=== PATIENT | female | born 1980 | race African-American/Black ===

== ENCOUNTER 2022-03-22 10:44 | Inpatient (IN) | payer OTHER ==
[~2022-03-22] VITALS: Ht 175.3 cm; Wt 57.6 kg
[2022-03-22] VITALS (15 sets, daily range): BP systolic 133–180; BP diastolic 74–100
[2022-03-22 11:32] LABS: BASOPHILS % 0.5 % (0.0-1.0); EOSINOPHILS # (AUTO) 0.2 (0.0-0.4); EOSINOPHILS % 2.5 % (0.0-6.0); LYMPHOCYTES # (AUTO) 0.6 (1.0-3.2); LYMPHOCYTES % 9.4 % (18.0-39.1); MEAN CORPUSCULAR HGB CONC 31.2 g/dL (31-35); MEAN CORPUSCULAR VOLUME 96.2 fL (81-99); MONOCYTES # (AUTO) 0.4 (0.2-0.8); MONOCYTES % 6.3 % (4.4-11.3); NEUTROPHILS # (AUTO) 5.2 (2.1-6.9); NEUTROPHILS % 80.5 % (38.7-80.0); PLATELET COUNT 289 x10e3/uL (140-360); RED CELL DISTRIBUTION WIDTH 14.5 % (11.7-14.4)
[2022-03-22] MEDS ORDERED: ONDANSETRON HCL INJ 2MG/ML 2ML 2 MG/ML VIAL IV STA (11:35)
[2022-03-22] MEDS ORDERED: SODIUM CHLORIDE 0.9% 500ML 500 ML IV ONE (11:45)
[2022-03-22 11:53] LABS: HEMOGLOBIN 6.3 g/dL (12.0-16.0)
[2022-03-22 11:54] LABS: HEMATOCRIT 20.2 % (34.2-44.1)
[2022-03-22 11:56] LABS: INR 1.12; PROTHROMBIN TIME 15.4 seconds (11.9-14.5)
[2022-03-22 11:57] LABS: PARTIAL THROMBOPLASTIN TIME 42.1 seconds (23.8-35.5)
[2022-03-22] MEDS ORDERED: SODIUM CHLORIDE 0.9% 250ML 250 ML ONE (12:27)
[2022-03-22 12:47] LABS: ALANINE AMINOTRANSFERASE 8 IU/L (0-55); ALBUMIN 3.8 g/dL (3.5-5.0); ALKALINE PHOSPHATASE 74 IU/L (40-150); BLOOD UREA NITROGEN 64 mg/dL (7-26); BUN/CREATININE RATIO 7 (6-25); CALCIUM 8.6 mg/dL (8.4-10.2); CARBON DIOXIDE 17 mmol/L (22-29); CHLORIDE 106 mmol/L (98-107); CREATININE, SERUM 8.82 mg/dL (0.57-1.11); GLUCOSE 100 mg/dL (74-118); SODIUM 137 mmol/L (136-145)
[2022-03-22] MEDS ORDERED: DEXTROSE 50% SYRINGE 50 ML IV STA (13:08)
[2022-03-22] MEDS ORDERED: SODIUM BICARBONATE 8.4% INJ 50 ML SYR IV STA (13:08)
[2022-03-22] MEDS ORDERED: INSULIN REGULAR, HUMAN 100 UNIT/1 ML IV ONE (13:15)
[2022-03-22] MEDS ORDERED: CALCIUM GLUC 1 G/50 ML NACL 50 ML IV ONE (13:15)
[2022-03-22] MEDS ORDERED: LIDOCAINE HCL 2% LOCAL INJ 5 ML SDV VIAL INJ ONE (14:22)
[2022-03-22 14:44] LABS: ALBUMIN 3.5 g/dL (3.5-5.0); ALBUMIN/GLOBULIN RATIO 0.7 (0.8-2.0); ANION GAP 21.1 mmol/L (8-16); CALCIUM 9.1 mg/dL (8.4-10.2); CREATININE, SERUM 8.91 mg/dL (0.57-1.11)
[2022-03-22] MEDS ORDERED: Vancomycin IV 1 GM in SODIUM CHLORIDE 0.9% 250ML 250 ML IV ONE ×2 (14:45→18:45)
[2022-03-22 14:52] LABS: POTASSIUM 6.1 mmol/L (3.5-5.1)
[2022-03-22] MEDS ORDERED: MANNITOL 25% 12.5GM/50 ML VIAL IV PRN (15:45)
[2022-03-22] MEDS ORDERED: SODIUM CHLORIDE 0.9% 1000ML 2,000 ML IV PRN (15:45)
[2022-03-22] MEDS ORDERED: HEPARIN SOD (PORCINE) 1000 UNIT/ML SDV IV PRN (15:45)
[2022-03-22] MEDS ORDERED: SODIUM CHLORIDE 0.9% 250ML 250 ML IV ONE (16:20)
[2022-03-22] MEDS: HYDROCODONE/APAP 5MG-325MG TAB PO PRN ×2 (17:27→22:39)
[2022-03-22] MEDS: Morphine 2mg Syringe 2 MG/ML SYR IV PRN (21:42)
[2022-03-22] MEDS: SODIUM BICARBONATE 8.4% 150 ML in DEXTROSE 5% 1,000 ML IV SCH (22:02)
[2022-03-22] MEDS: LORAZEPAM 0.5 MG TAB PO PRN (23:29)
[2022-03-23] VITALS (33 sets, daily range): BP systolic 119–181; BP diastolic 61–106
[2022-03-23] MEDS: Morphine 2mg Syringe 2 MG/ML SYR IV PRN (01:37)
[2022-03-23] MEDS: HYDROCODONE/APAP 5MG-325MG TAB PO PRN ×4 (04:17→20:00)
[2022-03-23] MEDS: HYDROMORPHONE 1MG/1ML INJ IV PRN ×2 (05:43→17:21)
[2022-03-23 05:47] LABS: BASOPHILS % 0.5 % (0.0-1.0); EOSINOPHILS # (AUTO) 0.2 (0.0-0.4); EOSINOPHILS % 2.8 % (0.0-6.0); LYMPHOCYTES # (AUTO) 0.9 (1.0-3.2); MEAN CORPUSCULAR HEMOGLOBIN 30.8 pg (28-32); MEAN CORPUSCULAR HGB CONC 33.5 g/dL (31-35); MEAN CORPUSCULAR VOLUME 91.9 fL (81-99); MONOCYTES # (AUTO) 0.5 (0.2-0.8); MONOCYTES % 8.5 % (4.4-11.3); NEUTROPHILS # (AUTO) 4.5 (2.1-6.9); NEUTROPHILS % 73.7 % (38.7-80.0); PLATELET COUNT 228 x10e3/uL (140-360); RED BLOOD COUNT 2.21 x10e6/uL (3.6-5.1); RED CELL DISTRIBUTION WIDTH 13.9 % (11.7-14.4)
[2022-03-23 05:58] LABS: HEMATOCRIT 20.3 % (34.2-44.1); HEMOGLOBIN 6.8 g/dL (12.0-16.0)
[2022-03-23 06:14] LABS: ALBUMIN 2.6 g/dL (3.5-5.0); ALBUMIN/GLOBULIN RATIO 0.7 (0.8-2.0); ANION GAP 15.7 mmol/L (8-16); CALCIUM 7.6 mg/dL (8.4-10.2); CREATININE, SERUM 6.66 mg/dL (0.57-1.11); POTASSIUM 4.7 mmol/L (3.5-5.1)
[2022-03-23] MEDS ORDERED: SODIUM CHLORIDE 0.9% 250ML 250 ML IV ONE (06:30)
[2022-03-23] MEDS: ONDANSETRON HCL INJ 2MG/ML 2ML 2 MG/ML VIAL IV PRN ×3 (06:52→20:57)
[2022-03-23] MEDS ORDERED: ONDANSETRON HCL INJ 2MG/ML 2ML 2 MG/ML VIAL ONE (07:04)
[2022-03-23] MEDS: SODIUM BICARBONATE 8.4% 150 ML in DEXTROSE 5% 1,000 ML IV SCH (08:13)
[2022-03-23] MEDS ORDERED: EPOETIN ALFA-EPBX 10,000 UNIT/ML VIAL SC ONE (09:00)
[2022-03-23] MEDS: DEXTROSE 5%/0.45% SOD CHL 1,000 ML IV SCH (10:34)
[2022-03-23] MEDS: LORAZEPAM 0.5 MG TAB PO PRN (16:12)
[2022-03-24] VITALS (20 sets, daily range): BP systolic 122–169; BP diastolic 83–110
[2022-03-24] MEDS: HYDROMORPHONE 1MG/1ML INJ IV PRN ×5 (00:03→23:11)
[2022-03-24] MEDS ORDERED: LISINOPRIL10 MG PO (00:17)
[2022-03-24] MEDS ORDERED: FEROSUL325 MG PO (00:17)
[2022-03-24] MEDS: HYDROCODONE/APAP 5MG-325MG TAB PO PRN ×5 (02:02→21:08)
[2022-03-24] MEDS: DEXTROSE 5%/0.45% SOD CHL 1,000 ML IV SCH ×2 (03:18→16:57)
[2022-03-24 05:12] LABS: BASOPHILS % 0.3 % (0.0-1.0); EOSINOPHILS # (AUTO) 0.2 (0.0-0.4); EOSINOPHILS % 3.4 % (0.0-6.0); HEMATOCRIT 25.6 % (34.2-44.1); LYMPHOCYTES # (AUTO) 1.1 (1.0-3.2); MEAN CORPUSCULAR HEMOGLOBIN 30.4 pg (28-32); MEAN CORPUSCULAR HGB CONC 31.3 g/dL (31-35); MEAN CORPUSCULAR VOLUME 97.3 fL (81-99); MONOCYTES # (AUTO) 0.5 (0.2-0.8); MONOCYTES % 7.3 % (4.4-11.3); NEUTROPHILS # (AUTO) 5.1 (2.1-6.9); NEUTROPHILS % 73.4 % (38.7-80.0); PLATELET COUNT 239 x10e3/uL (140-360); RED BLOOD COUNT 2.63 x10e6/uL (3.6-5.1)
[2022-03-24 05:29] LABS: ANION GAP 15.2 mmol/L (8-16); CREATININE, SERUM 4.83 mg/dL (0.57-1.11); POTASSIUM 4.2 mmol/L (3.5-5.1)
[2022-03-24] MEDS: DOCUSATE SODIUM 100 MG CAP PO PRN ×2 (05:45→15:08)
[2022-03-24] MEDS: ONDANSETRON HCL INJ 2MG/ML 2ML 2 MG/ML VIAL IV PRN ×2 (05:54→11:56)
[2022-03-24] MEDS: AMLODIPINE BESYLATE 5 MG TAB PO SCH (08:44)
[2022-03-24] MEDS ORDERED: HEPARIN SOD (PORCINE) 1000 UNIT/ML SDV IV PRN (14:15)
[2022-03-24] MEDS ORDERED: CEFTRIAXONE 1 GM VIAL ONE (17:07)
[2022-03-25] VITALS (7 sets, daily range): BP systolic 155–168; BP diastolic 92–105
[2022-03-25] MEDS: HYDROCODONE/APAP 5MG-325MG TAB PO PRN ×5 (01:36→21:58)
[2022-03-25] MEDS: ONDANSETRON HCL INJ 2MG/ML 2ML 2 MG/ML VIAL IV PRN ×4 (01:36→20:31)
[2022-03-25] MEDS: DEXTROSE 5%/0.45% SOD CHL 1,000 ML IV SCH ×2 (03:54→11:03)
[2022-03-25] MEDS: HYDROMORPHONE 1MG/1ML INJ IV PRN ×4 (04:30→20:32)
[2022-03-25] MEDS: AMLODIPINE BESYLATE 5 MG TAB PO SCH (08:55)
[2022-03-25] MEDS ORDERED: SODIUM FERRIC GLUCONATE COMPLX 125 MG in SODIUM CHLORIDE 0.9% 100 ML IV SCH (09:00)
[2022-03-25] MEDS ORDERED: HYDROCODON-ACE1 EA10 PO (09:00)
[2022-03-25 11:18] LABS: BASOPHILS % 0.3 % (0.0-1.0); EOSINOPHILS # (AUTO) 0.3 (0.0-0.4); EOSINOPHILS % 3.8 % (0.0-6.0); HEMATOCRIT 27.4 % (34.2-44.1); HEMOGLOBIN 8.5 g/dL (12.0-16.0); LYMPHOCYTES % 13.2 % (18.0-39.1); MEAN CORPUSCULAR HEMOGLOBIN 30.4 pg (28-32); MEAN CORPUSCULAR VOLUME 97.9 fL (81-99); MONOCYTES # (AUTO) 0.4 (0.2-0.8); MONOCYTES % 5.4 % (4.4-11.3); NEUTROPHILS # (AUTO) 5.5 (2.1-6.9); NEUTROPHILS % 76.5 % (38.7-80.0); PLATELET COUNT 234 x10e3/uL (140-360); RED CELL DISTRIBUTION WIDTH 13.3 % (11.7-14.4)
[2022-03-25 11:38] LABS: INR 1.01; PROTHROMBIN TIME 14.2 seconds (11.9-14.5)
[2022-03-25 11:39] LABS: PARTIAL THROMBOPLASTIN TIME 37.5 seconds (23.8-35.5)
[2022-03-25] MEDS ORDERED: SODIUM CHLORIDE 0.9% 250ML 250 ML ONE (18:54)
[2022-03-26] VITALS (9 sets, daily range): BP systolic 149–171; BP diastolic 92–101
[2022-03-26] MEDS: ONDANSETRON HCL INJ 2MG/ML 2ML 2 MG/ML VIAL IV PRN ×3 (00:15→15:08)
[2022-03-26] MEDS: HYDROMORPHONE 1MG/1ML INJ IV PRN ×7 (00:15→21:17)
[2022-03-26] MEDS: HYDROCODONE/APAP 5MG-325MG TAB PO PRN ×5 (01:54→20:12)
[2022-03-26 06:22] LABS: PROTHROMBIN TIME 14.1 seconds (11.9-14.5)
[2022-03-26] MEDS: AMLODIPINE BESYLATE 5 MG TAB PO SCH ×2 (09:00→15:08)
[2022-03-26] MEDS: DEXTROSE 5%/0.45% SOD CHL 1,000 ML IV SCH ×2 (09:01→16:32)
[2022-03-26 09:30] LABS: BASOPHILS % 0.3 % (0.0-1.0); EOSINOPHILS # (AUTO) 0.2 (0.0-0.4); EOSINOPHILS % 3.1 % (0.0-6.0); HEMATOCRIT 26.2 % (34.2-44.1); HEMOGLOBIN 8.2 g/dL (12.0-16.0); LYMPHOCYTES # (AUTO) 0.9 (1.0-3.2); LYMPHOCYTES % 14.2 % (18.0-39.1); MEAN CORPUSCULAR HEMOGLOBIN 30.5 pg (28-32); MEAN CORPUSCULAR HGB CONC 31.3 g/dL (31-35); MEAN CORPUSCULAR VOLUME 97.4 fL (81-99); MONOCYTES # (AUTO) 0.3 (0.2-0.8); MONOCYTES % 5.3 % (4.4-11.3); NEUTROPHILS # (AUTO) 4.6 (2.1-6.9); NEUTROPHILS % 76.3 % (38.7-80.0); PLATELET COUNT 211 x10e3/uL (140-360); RED BLOOD COUNT 2.69 x10e6/uL (3.6-5.1); RED CELL DISTRIBUTION WIDTH 13.2 % (11.7-14.4)
[2022-03-26 10:00] LABS: ALBUMIN 2.8 g/dL (3.5-5.0); ALBUMIN/GLOBULIN RATIO 0.8 (0.8-2.0); ANION GAP 15.1 mmol/L (8-16); CREATININE, SERUM 4.57 mg/dL (0.57-1.11); POTASSIUM 4.1 mmol/L (3.5-5.1)
[2022-03-26] MEDS ORDERED: LIDOCAINE HCL 1% 30ML-PF VIAL INJ ONE (10:16)
[2022-03-26 10:34] LABS: MAGNESIUM 1.6 MG/DL (1.3-2.1); PHOSPHORUS 3.8 MG/DL (2.3-4.7)
[2022-03-26] MEDS ORDERED: MIDAZOLAM HCL 2 MG/2 ML VIAL ONE (12:30)
[2022-03-26] MEDS ORDERED: FENTANYL CITRATE/PF 100MCG/2 ML INJ ONE (12:31)
[2022-03-26] MEDS ORDERED: SODIUM CHLORIDE 0.9% 250ML 250 ML ONE (12:31)
[2022-03-26] MEDS ORDERED: CEFTRIAXONE 1 GM VIAL ONE (12:33)
[2022-03-26] MEDS: CLONIDINE HCL 0.1 MG TAB PO PRN (17:25)
[2022-03-27] VITALS (7 sets, daily range): BP systolic 137–170; BP diastolic 87–100
[2022-03-27] MEDS: HYDROMORPHONE 1MG/1ML INJ IV PRN ×6 (00:33→21:42)
[2022-03-27] MEDS: HYDROCODONE/APAP 5MG-325MG TAB PO PRN ×5 (02:15→19:00)
[2022-03-27] MEDS: CLONIDINE HCL 0.1 MG TAB PO PRN (06:20)
[2022-03-27 08:31] LABS: ALBUMIN 2.5 g/dL (3.5-5.0); ALBUMIN/GLOBULIN RATIO 0.7 (0.8-2.0); ANION GAP 14.5 mmol/L (8-16); CALCIUM 8.1 mg/dL (8.4-10.2); CREATININE, SERUM 5.98 mg/dL (0.57-1.11); POTASSIUM 4.5 mmol/L (3.5-5.1)
[2022-03-27] MEDS: DEXTROSE 5%/0.45% SOD CHL 1,000 ML IV SCH (08:42)
[2022-03-27] MEDS: AMLODIPINE BESYLATE 5 MG TAB PO SCH ×2 (08:43→09:10)
[2022-03-27] MEDS: HYDROCODONE/APAP 10MG-325MG TAB PO PRN (23:13)
[2022-03-28] VITALS (8 sets, daily range): BP systolic 139–172; BP diastolic 91–102
[2022-03-28] MEDS: HYDROMORPHONE 1MG/1ML INJ IV PRN ×5 (03:04→22:15)
[2022-03-28] MEDS: HYDROCODONE/APAP 10MG-325MG TAB PO PRN ×5 (04:16→20:36)
[2022-03-28] MEDS: DEXTROSE 5%/0.45% SOD CHL 1,000 ML IV SCH (04:22)
[2022-03-28 05:27] LABS: BASOPHILS % 0.4 % (0.0-1.0); EOSINOPHILS # (AUTO) 0.3 (0.0-0.4); EOSINOPHILS % 4.2 % (0.0-6.0); HEMOGLOBIN 9.2 g/dL (12.0-16.0); LYMPHOCYTES # (AUTO) 1.1 (1.0-3.2); LYMPHOCYTES % 15.9 % (18.0-39.1); MEAN CORPUSCULAR HEMOGLOBIN 30.5 pg (28-32); MEAN CORPUSCULAR HGB CONC 31.7 g/dL (31-35); MONOCYTES # (AUTO) 0.4 (0.2-0.8); MONOCYTES % 5.8 % (4.4-11.3); NEUTROPHILS # (AUTO) 4.9 (2.1-6.9); PLATELET COUNT 237 x10e3/uL (140-360); RED BLOOD COUNT 3.02 x10e6/uL (3.6-5.1); RED CELL DISTRIBUTION WIDTH 13.8 % (11.7-14.4)
[2022-03-28 05:49] LABS: ALBUMIN/GLOBULIN RATIO 0.7 (0.8-2.0); ANION GAP 17.2 mmol/L (8-16); CALCIUM 8.8 mg/dL (8.4-10.2); CREATININE, SERUM 6.28 mg/dL (0.57-1.11); POTASSIUM 4.2 mmol/L (3.5-5.1)
[2022-03-28] MEDS: CLONIDINE HCL 0.1 MG TAB PO PRN (08:37)
[2022-03-28] MEDS: AMLODIPINE BESYLATE 5 MG TAB PO SCH (08:38)
[2022-03-28] MEDS: NIFEDIPINE CR 30 MG TAB PO SCH (20:46)
[2022-03-28] MEDS: ONDANSETRON HCL INJ 2MG/ML 2ML 2 MG/ML VIAL IV PRN (23:42)
[2022-03-29] VITALS (7 sets, daily range): BP systolic 118–164; BP diastolic 78–94
[2022-03-29] MEDS: HYDROCODONE/APAP 10MG-325MG TAB PO PRN ×4 (00:44→18:32)
[2022-03-29] MEDS: HYDROMORPHONE 1MG/1ML INJ IV PRN ×6 (02:17→22:14)
[2022-03-29] MEDS: ONDANSETRON HCL INJ 2MG/ML 2ML 2 MG/ML VIAL IV PRN ×5 (06:41→22:13)
[2022-03-29] MEDS: NIFEDIPINE CR 30 MG TAB PO SCH ×2 (13:00→22:16)
[2022-03-29] MEDS ORDERED: SODIUM CHLORIDE 0.9% 250ML 250 ML ONE ×3 (14:37→16:53)
[2022-03-29] MEDS ORDERED: MIDAZOLAM HCL 2 MG/2 ML VIAL ONE (15:17)
[2022-03-29] MEDS ORDERED: HEPARIN SOD (PORCINE) 1000 UNIT/ML SDV ONE (15:17)
[2022-03-29] MEDS ORDERED: CEFTRIAXONE 1 GM VIAL ONE (15:18)
[2022-03-29] MEDS ORDERED: FENTANYL CITRATE/PF 100MCG/2 ML INJ ONE (15:18)
[2022-03-29] MEDS ORDERED: IOPAMIDOL 300MG/ML 100 ML INFUS..BTL IV ONE (16:03)
[2022-03-29] MEDS: KETOROLAC TROMETHAMINE 30 MG/ML VIAL IV PRN (20:42)
[2022-03-30] VITALS (7 sets, daily range): BP systolic 112–132; BP diastolic 73–84
[2022-03-30] MEDS: HYDROCODONE/APAP 10MG-325MG TAB PO PRN ×3 (00:38→14:15)
[2022-03-30] MEDS: KETOROLAC TROMETHAMINE 30 MG/ML VIAL IV PRN ×3 (04:07→20:43)
[2022-03-30] MEDS: NIFEDIPINE CR 30 MG TAB PO SCH ×2 (09:00→20:43)
[2022-03-30] MEDS ORDERED: EPOETIN ALFA-EPBX 10,000 UNIT/ML VIAL SC SCH (10:00)
[2022-03-30] MEDS: ONDANSETRON HCL INJ 2MG/ML 2ML 2 MG/ML VIAL IV PRN ×3 (10:13→22:09)
[2022-03-30] MEDS: HYDROMORPHONE 1MG/1ML INJ IV PRN ×3 (10:14→22:17)
[2022-03-30 11:26] LABS: BASOPHILS % 0.3 % (0.0-1.0); EOSINOPHILS # (AUTO) 0.3 (0.0-0.4); EOSINOPHILS % 4.5 % (0.0-6.0); HEMATOCRIT 28.2 % (34.2-44.1); HEMOGLOBIN 8.3 g/dL (12.0-16.0); LYMPHOCYTES # (AUTO) 1.1 (1.0-3.2); LYMPHOCYTES % 15.4 % (18.0-39.1); MEAN CORPUSCULAR HEMOGLOBIN 29.5 pg (28-32); MEAN CORPUSCULAR HGB CONC 29.4 g/dL (31-35); MEAN CORPUSCULAR VOLUME 100.4 fL (81-99); MONOCYTES # (AUTO) 0.4 (0.2-0.8); MONOCYTES % 5.5 % (4.4-11.3); NEUTROPHILS # (AUTO) 5.1 (2.1-6.9); NEUTROPHILS % 73.6 % (38.7-80.0); PLATELET COUNT 242 x10e3/uL (140-360); RED BLOOD COUNT 2.81 x10e6/uL (3.6-5.1); RED CELL DISTRIBUTION WIDTH 13.5 % (11.7-14.4)
[2022-03-30 11:48] LABS: ALBUMIN/GLOBULIN RATIO 0.7 (0.8-2.0); ANION GAP 18.2 mmol/L (8-16); CALCIUM 8.5 mg/dL (8.4-10.2); CREATININE, SERUM 3.96 mg/dL (0.57-1.11); POTASSIUM 4.2 mmol/L (3.5-5.1)
[2022-03-30] MEDS ORDERED: HEPARIN SOD (PORCINE) 1000 UNIT/ML SDV ONE (14:58)
[2022-03-31] VITALS: BP 146/96
[2022-03-31] MEDS: HYDROCODONE/APAP 10MG-325MG TAB PO PRN ×2 (00:58→09:43)
[2022-03-31 04:00] VITALS: BP 126/90
[2022-03-31] MEDS: HYDROMORPHONE 1MG/1ML INJ IV PRN ×2 (04:53→12:38)
[2022-03-31] MEDS: ONDANSETRON HCL INJ 2MG/ML 2ML 2 MG/ML VIAL IV PRN ×2 (04:54→12:37)
[2022-03-31 05:58] LABS: BASOPHILS % 0.4 % (0.0-1.0); EOSINOPHILS # (AUTO) 0.4 (0.0-0.4); EOSINOPHILS % 4.9 % (0.0-6.0); HEMATOCRIT 25.1 % (34.2-44.1); LYMPHOCYTES # (AUTO) 1.2 (1.0-3.2); LYMPHOCYTES % 16.9 % (18.0-39.1); MEAN CORPUSCULAR HEMOGLOBIN 30.4 pg (28-32); MEAN CORPUSCULAR HGB CONC 31.9 g/dL (31-35); MEAN CORPUSCULAR VOLUME 95.4 fL (81-99); MONOCYTES # (AUTO) 0.4 (0.2-0.8); MONOCYTES % 5.8 % (4.4-11.3); NEUTROPHILS % 71.2 % (38.7-80.0); PLATELET COUNT 229 x10e3/uL (140-360); RED BLOOD COUNT 2.63 x10e6/uL (3.6-5.1); RED CELL DISTRIBUTION WIDTH 13.7 % (11.7-14.4)
[2022-03-31 06:19] LABS: ALBUMIN/GLOBULIN RATIO 0.7 (0.8-2.0); CALCIUM 8.5 mg/dL (8.4-10.2); CREATININE, SERUM 2.69 mg/dL (0.57-1.11)
[2022-03-31] MEDS: KETOROLAC TROMETHAMINE 30 MG/ML VIAL IV PRN (07:45)
[2022-03-31 08:15] VITALS: BP 110/75
[2022-03-31 08:39] VITALS: BP 110/75
[2022-03-31] MEDS: NIFEDIPINE CR 30 MG TAB PO SCH (09:43)
[2022-03-31 12:43] VITALS: BP 123/85
== END 2022-03-31 16:10 | disposition home or self-care (01) | DRG 674 ==
LOC: ER 10:59 → ICU 12:18 → UNDOADMOB 12:18 → ERHOLD 12:18 → MED/SURG 03-24 20:45
PROVIDERS: ADMIT Family Medicine; ATTEND Family Medicine
PROC: 02HV33Z Insertion of Infusion Device into Superior Vena Cava, Percutaneous Approach (ICD-10-PCS; principal; 2022-03-22)
PROC: 5A1D70Z Performance of Urinary Filtration, Intermittent, Less than 6 Hours Per Day (ICD-10-PCS; principal; 2022-03-22)
PROC: 0JH63XZ Insertion of Tunneled Vascular Access Device into Chest Subcutaneous Tissue and Fascia, Percutaneous Approach (ICD-10-PCS; principal; 2022-03-22)
PROC: 0T9330Z Drainage of Right Kidney Pelvis with Drainage Device, Percutaneous Approach (ICD-10-PCS; 2022-03-26)
PROC: 0T9430Z Drainage of Left Kidney Pelvis with Drainage Device, Percutaneous Approach (ICD-10-PCS; 2022-03-26)
DX: N17.9 Acute kidney failure, unspecified (principal); E87.20 Acidosis, unspecified; I47.20 Ventricular tachycardia, unspecified; I12.0 Hypertensive chronic kidney disease with stage 5 chronic kidney disease or end stage renal disease; C53.9 Malignant neoplasm of cervix uteri, unspecified; I10 Essential (primary) hypertension; N13.9 Obstructive and reflux uropathy, unspecified; D50.0 Iron deficiency anemia secondary to blood loss (chronic); E87.5 Hyperkalemia; E83.51 Hypocalcemia; D63.8 Anemia in other chronic diseases classified elsewhere; F41.9 Anxiety disorder, unspecified; N18.6 End stage renal disease; Z99.2 Dependence on renal dialysis; Z20.822 Contact with and (suspected) exposure to COVID-19
CPT/HCPCS: 0223U; 36415; 36558; 50432; 71045; 74176; 74425; 74470; 76770; 76937; 76942; 77001; 80048; 80053; 82728; 83735; 84100; 84702; 85025; 85610; 85730; 86706; 86850; 86900; 86920; 87340; 87350; 90962; 93306; 94799; 99284; C1729; C1769; J0696; J1170; J1644; J1885; J2001; J2150; J2250; J2270; J2405; J3010; J3370; J7030; J7040; J7050; J7070; P9016; P9017; Q9967

== ENCOUNTER 2022-04-04 08:39 | Emergency (ER) | payer OTHER ==
[~2022-04-04] VITALS: Ht 175.3 cm; Wt 57.2 kg
[~2022-04-04 08:39] MED LIST: FEROSUL325 MG PO; HYDROCODON-ACE1 EA10 PO; LISINOPRIL10 MG PO
[2022-04-04] MEDS ORDERED: IOPAMIDOL 300MG/ML 100 ML INFUS..BTL IV ONE (11:28)
[2022-04-04] MEDS ORDERED: LIDOCAINE 1% 10 ML MULTIDOSE VIAL IJ ONE (11:28)
[2022-04-04 12:42] VITALS: BP 128/77
== END 2022-04-04 12:43 | disposition home or self-care (01) ==
LOC: ER 08:45
DX: Z43.6 Encounter for attention to other artificial openings of urinary tract (principal); I10 Essential (primary) hypertension; Z85.41 Personal history of malignant neoplasm of cervix uteri
CPT/HCPCS: 74018; 74425; 74470; 99283; Q9967

== ENCOUNTER 2022-04-07 21:37 | Inpatient (IN) | payer OTHER ==
[~2022-04-07] VITALS: Ht 175.3 cm; Wt 57.6 kg
[2022-04-07] MEDS ORDERED: ASPIRIN 325 MG TAB PO ONE (22:30)
[2022-04-07] MEDS ORDERED: SODIUM CHLORIDE FLUSH 10 ML SYR IV PRN (22:30)
[2022-04-07 23:00] LABS: BASOPHILS % 0.4 % (0.0-1.0); EOSINOPHILS # (AUTO) 0.4 (0.0-0.4); EOSINOPHILS % 4.5 % (0.0-6.0); HEMATOCRIT 30.1 % (34.2-44.1); HEMOGLOBIN 9.2 g/dL (12.0-16.0); LYMPHOCYTES # (AUTO) 1.8 (1.0-3.2); MEAN CORPUSCULAR HEMOGLOBIN 30.5 pg (28-32); MEAN CORPUSCULAR HGB CONC 30.6 g/dL (31-35); MEAN CORPUSCULAR VOLUME 99.7 fL (81-99); MONOCYTES # (AUTO) 0.8 (0.2-0.8); MONOCYTES % 8.1 % (4.4-11.3); NEUTROPHILS # (AUTO) 6.7 (2.1-6.9); NEUTROPHILS % 68.5 % (38.7-80.0); PLATELET COUNT 364 x10e3/uL (140-360); RED BLOOD COUNT 3.02 x10e6/uL (3.6-5.1); RED CELL DISTRIBUTION WIDTH 13.9 % (11.7-14.4)
[2022-04-07 23:06] LABS: AMPHETAMINES SCREEN,URINE NEGATIVE (NEGATIVE); BENZODIAZEPINES SCREEN,URINE NEGATIVE (NEGATIVE); CLARITY,URINE CLOUDY (CLEAR); COLOR,URINE YELLOW (YELLOW); PHENCYCLIDINE SCREEN,URINE NEGATIVE (NEGATIVE)
[2022-04-07 23:07] LABS: KETONES,URINE NEGATIVE (NEGATIVE); LEUKOCYTE ESTERASE ,URINE LARGE (NEGATIVE); NITRITE,URINE POSITIVE (NEGATIVE); PROTEIN,URINE DIPSTICK >=300 (NEGATIVE); URINE UROBILINOGEN 0.2 mg/dL (0.2 - 1)
[2022-04-07 23:17] LABS: INR 1.02; PROTHROMBIN TIME 14.3 seconds (11.9-14.5)
[2022-04-07 23:18] LABS: BACTERIA,URINE MANY /HPF; EPITHELIAL CELLS,URINE MODERATE /LPF; RBC,URINE >50 /HPF (0-5); RENAL EPITHELIAL CELLS,URINE FEW; TRANSITIONAL EPI CELLS,URINE FEW; WBC,URINE (MAN) >50 /HPF (0-5)
[2022-04-07 23:24] LABS: ALBUMIN 3.8 g/dL (3.5-5.0); ALBUMIN/GLOBULIN RATIO 0.7 (0.8-2.0); ANION GAP 18.3 mmol/L (8-16); CALCIUM 9.3 mg/dL (8.4-10.2); CREATININE, SERUM 3.11 mg/dL (0.57-1.11); POTASSIUM 4.3 mmol/L (3.5-5.1)
[2022-04-07 23:26] LABS: PARTIAL THROMBOPLASTIN TIME 118.6 seconds (23.8-35.5)
[2022-04-08] VITALS (7 sets, daily range): BP systolic 106–111; BP diastolic 66–73
[2022-04-08] MEDS ORDERED: SODIUM CHLORIDE 0.9% 250ML 250 ML IV ONE (01:30)
[2022-04-08] MEDS ORDERED: HYDROCODONE/APAP 5MG-325MG TAB PO PRN (02:00)
[2022-04-08] MEDS: HYDROCODONE/APAP 10MG-325MG TAB PO PRN ×4 (03:45→20:48)
[2022-04-08] MEDS ORDERED: HYDROMORPHONE 1MG/1ML INJ IV PRN (11:45)
[2022-04-08] MEDS: KETOROLAC TROMETHAMINE 30 MG/ML VIAL IV PRN (18:01)
[2022-04-09] VITALS (8 sets, daily range): BP systolic 106–143; BP diastolic 68–81
[2022-04-09] MEDS: KETOROLAC TROMETHAMINE 30 MG/ML VIAL IV PRN ×3 (00:54→18:57)
[2022-04-09] MEDS: HYDROCODONE/APAP 10MG-325MG TAB PO PRN ×3 (05:12→17:10)
[2022-04-09 06:26] LABS: BASOPHILS # (AUTO) 0.1 (0.0-0.1); BASOPHILS % 0.7 % (0.0-1.0); EOSINOPHILS # (AUTO) 0.4 (0.0-0.4); EOSINOPHILS % 5.9 % (0.0-6.0); HEMATOCRIT 24.3 % (34.2-44.1); HEMOGLOBIN 8.1 g/dL (12.0-16.0); LYMPHOCYTES # (AUTO) 1.1 (1.0-3.2); LYMPHOCYTES % 15.2 % (18.0-39.1); MEAN CORPUSCULAR HEMOGLOBIN 32.7 pg (28-32); MEAN CORPUSCULAR HGB CONC 33.3 g/dL (31-35); MONOCYTES # (AUTO) 0.7 (0.2-0.8); MONOCYTES % 9.3 % (4.4-11.3); NEUTROPHILS % 68.3 % (38.7-80.0); PLATELET COUNT 267 x10e3/uL (140-360); RED BLOOD COUNT 2.48 x10e6/uL (3.6-5.1); RED CELL DISTRIBUTION WIDTH 14.6 % (11.7-14.4)
[2022-04-09 06:55] LABS: ALBUMIN 3.1 g/dL (3.5-5.0); ALBUMIN/GLOBULIN RATIO 0.7 (0.8-2.0); ANION GAP 15.9 mmol/L (8-16); CALCIUM 8.9 mg/dL (8.4-10.2); CREATININE, SERUM 3.28 mg/dL (0.57-1.11); POTASSIUM 4.9 mmol/L (3.5-5.1)
[2022-04-09] MEDS: ONDANSETRON HCL INJ 2MG/ML 2ML 2 MG/ML VIAL IV PRN ×2 (08:19→17:10)
[2022-04-09] MEDS ORDERED: HYDROMORPHONE 1MG/1ML INJ IV STA (13:08)
[2022-04-09] MEDS ORDERED: HYDROMORPHONE 1MG/1ML INJ IV ONE ×2 (19:25→23:45)
[2022-04-09] MEDS: HYDROMORPHONE HCL 2 MG TAB PO PRN (20:24)
[2022-04-09] MEDS ORDERED: HEPARIN SOD (PORCINE) 1000 UNIT/ML SDV IV ONE ×4 (21:00)
[2022-04-09] MEDS ORDERED: SODIUM CHLORIDE 0.9% 1000ML 1,000 ML IV ONE ×2 (21:00)
[2022-04-10] VITALS (7 sets, daily range): BP systolic 101–120; BP diastolic 69–84
[2022-04-10] MEDS: KETOROLAC TROMETHAMINE 30 MG/ML VIAL IV PRN ×6 (02:12→22:42)
[2022-04-10] MEDS: HYDROMORPHONE HCL 2 MG TAB PO PRN ×4 (04:16→21:29)
[2022-04-10 05:40] LABS: BASOPHILS % 0.6 % (0.0-1.0); EOSINOPHILS # (AUTO) 0.4 (0.0-0.4); EOSINOPHILS % 5.2 % (0.0-6.0); HEMATOCRIT 24.4 % (34.2-44.1); HEMOGLOBIN 7.5 g/dL (12.0-16.0); LYMPHOCYTES % 14.3 % (18.0-39.1); MEAN CORPUSCULAR HEMOGLOBIN 30.6 pg (28-32); MEAN CORPUSCULAR HGB CONC 30.7 g/dL (31-35); MEAN CORPUSCULAR VOLUME 99.6 fL (81-99); MONOCYTES # (AUTO) 0.5 (0.2-0.8); MONOCYTES % 7.7 % (4.4-11.3); NEUTROPHILS # (AUTO) 4.9 (2.1-6.9); NEUTROPHILS % 71.8 % (38.7-80.0); PLATELET COUNT 264 x10e3/uL (140-360); RED BLOOD COUNT 2.45 x10e6/uL (3.6-5.1); RED CELL DISTRIBUTION WIDTH 13.3 % (11.7-14.4)
[2022-04-10 06:04] LABS: ALBUMIN 2.9 g/dL (3.5-5.0); ALBUMIN/GLOBULIN RATIO 0.7 (0.8-2.0); ANION GAP 14.2 mmol/L (8-16); CALCIUM 8.4 mg/dL (8.4-10.2); CREATININE, SERUM 2.27 mg/dL (0.57-1.11); POTASSIUM 4.2 mmol/L (3.5-5.1)
[2022-04-10] MEDS ORDERED: HYDROMORPHONE 1MG/1ML INJ IV STA (11:14)
[2022-04-10] MEDS ORDERED: BISACODYL 5 MG TAB EC PO ONE (17:45)
[2022-04-10] MEDS ORDERED: EPOETIN ALFA-EPBX 10,000 UNIT/ML VIAL SC SCH (18:00)
[2022-04-10] MEDS ORDERED: BISACODYL 5 MG TAB EC PO PRN (18:00)
[2022-04-10] MEDS ORDERED: MAGNESIUM HYDROXIDE 30 ML UDC PO PRN (18:00)
[2022-04-10] MEDS: ONDANSETRON HCL INJ 2MG/ML 2ML 2 MG/ML VIAL IV PRN (19:08)
[2022-04-11] VITALS (7 sets, daily range): BP systolic 109–127; BP diastolic 69–94
[2022-04-11] MEDS: HYDROMORPHONE HCL 2 MG TAB PO PRN ×6 (03:13→23:34)
[2022-04-11] MEDS: KETOROLAC TROMETHAMINE 30 MG/ML VIAL IV PRN ×3 (05:37→22:30)
[2022-04-11] MEDS: ONDANSETRON HCL INJ 2MG/ML 2ML 2 MG/ML VIAL IV PRN (05:37)
[2022-04-11] MEDS ORDERED: SODIUM CHLORIDE 0.9% 1000ML 2,000 ML IV PRN (09:45)
[2022-04-11] MEDS ORDERED: HEPARIN SOD (PORCINE) 1000 UNIT/ML SDV ONE (09:45)
[2022-04-11] MEDS ORDERED: SODIUM CHLORIDE 0.9% 1000ML 1,000 ML ONE ×2 (09:45→12:54)
[2022-04-11] MEDS ORDERED: HEPARIN SOD (PORCINE) 1000 UNIT/ML SDV IV PRN (09:45)
[2022-04-11] MEDS ORDERED: SODIUM CHLORIDE 0.9% 250ML 250 ML IV ONE (10:45)
[2022-04-11] MEDS ORDERED: SODIUM CHLORIDE 0.9% 250ML 250 ML ONE (12:50)
[2022-04-12] VITALS: BP 124/90
[2022-04-12 04:00] VITALS: BP 115/83
[2022-04-12] MEDS: HYDROMORPHONE HCL 2 MG TAB PO PRN ×2 (04:50→08:57)
[2022-04-12] MEDS: ONDANSETRON HCL INJ 2MG/ML 2ML 2 MG/ML VIAL IV PRN (06:49)
[2022-04-12] MEDS: KETOROLAC TROMETHAMINE 30 MG/ML VIAL IV PRN (06:49)
[2022-04-12 08:45] VITALS: BP 99/71
[2022-04-12 08:59] VITALS: BP 99/71
[2022-04-12] MEDS ORDERED: CIPRO500 MG PO (11:21)
== END 2022-04-12 11:42 | disposition home or self-care (01) | DRG 689 ==
LOC: ER 21:43 → ERHOLD 04-08 02:06 → MED/SURG2 04-08 07:48
PROVIDERS: ADMIT Family Medicine; ATTEND Family Medicine
PROC: 5A1D70Z Performance of Urinary Filtration, Intermittent, Less than 6 Hours Per Day (ICD-10-PCS; principal; 2022-04-09)
PROC: 30243N1 Transfusion of Nonautologous Red Blood Cells into Central Vein, Percutaneous Approach (ICD-10-PCS; 2022-04-11)
DX: N39.0 Urinary tract infection, site not specified (principal); N18.6 End stage renal disease; I12.0 Hypertensive chronic kidney disease with stage 5 chronic kidney disease or end stage renal disease; C79.9 Secondary malignant neoplasm of unspecified site; R64 Cachexia; Z68.1 Body mass index [BMI] 19.9 or less, adult; Z99.2 Dependence on renal dialysis; C53.9 Malignant neoplasm of cervix uteri, unspecified; D63.8 Anemia in other chronic diseases classified elsewhere; B96.5 Pseudomonas (aeruginosa) (mallei) (pseudomallei) as the cause of diseases classified elsewhere; Z96.0 Presence of urogenital implants
CPT/HCPCS: 0223U; 36415; 71045; 80053; 80307; 81001; 83605; 83880; 84484; 84702; 85025; 85610; 85730; 86706; 86850; 86900; 86920; 87040; 87086; 87186; 87350; 93005; 94760; 99284; J0692; J0696; J1170; J1644; J1885; J2405; J7030; J7050; P9016

== ENCOUNTER 2022-04-19 13:44 | Inpatient (IN) | payer OTHER ==
[~2022-04-19] VITALS: Ht 175.3 cm; Wt 57.6 kg
[~2022-04-19 13:44] MED LIST changes: +CIPRO500 MG PO
[2022-04-19 16:24] LABS: CLARITY,URINE CLOUDY (CLEAR); COLOR,URINE YELLOW (YELLOW); KETONES,URINE NEGATIVE (NEGATIVE); LEUKOCYTE ESTERASE ,URINE MODERATE (NEGATIVE); NITRITE,URINE NEGATIVE (NEGATIVE); PROTEIN,URINE DIPSTICK >=300 (NEGATIVE); URINE UROBILINOGEN 1 mg/dL (0.2 - 1)
[2022-04-19 16:34] LABS: WBC,URINE (MAN) 21-50 /HPF (0-5)
[2022-04-19 16:35] LABS: BACTERIA,URINE MANY /HPF; EPITHELIAL CELLS,URINE FEW /LPF
[2022-04-19] MEDS ORDERED: HYDROMORPHONE HCL 2 MG TAB PO ONE (16:45)
[2022-04-19 16:47] LABS: BASOPHILS % 0.4 % (0.0-1.0); EOSINOPHILS # (AUTO) 0.1 (0.0-0.4); EOSINOPHILS % 1.5 % (0.0-6.0); HEMATOCRIT 31.7 % (34.2-44.1); HEMOGLOBIN 9.9 g/dL (12.0-16.0); LYMPHOCYTES # (AUTO) 1.2 (1.0-3.2); LYMPHOCYTES % 13.6 % (18.0-39.1); MEAN CORPUSCULAR HEMOGLOBIN 30.6 pg (28-32); MEAN CORPUSCULAR HGB CONC 31.2 g/dL (31-35); MEAN CORPUSCULAR VOLUME 97.8 fL (81-99); MONOCYTES # (AUTO) 0.3 (0.2-0.8); MONOCYTES % 3.1 % (4.4-11.3); NEUTROPHILS # (AUTO) 6.9 (2.1-6.9); NEUTROPHILS % 81.2 % (38.7-80.0); PLATELET COUNT 266 x10e3/uL (140-360); RED BLOOD COUNT 3.24 x10e6/uL (3.6-5.1); RED CELL DISTRIBUTION WIDTH 14.2 % (11.7-14.4)
[2022-04-19 17:03] LABS: ALBUMIN 3.7 g/dL (3.5-5.0); ALBUMIN/GLOBULIN RATIO 0.8 (0.8-2.0); ANION GAP 15.4 mmol/L (8-16); CREATININE, SERUM 1.99 mg/dL (0.57-1.11); POTASSIUM 4.4 mmol/L (3.5-5.1)
[2022-04-19] MEDS: ONDANSETRON HCL INJ 2MG/ML 2ML 2 MG/ML VIAL IV PRN ×2 (17:50→20:14)
[2022-04-19] MEDS: Morphine 4mg INJECTION 4 MG/ML INJ IV PRN ×2 (17:50→20:14)
[2022-04-19 22:15] VITALS: BP 133/87
[2022-04-19] MEDS: HYDROCODONE/APAP 5MG-325MG TAB PO PRN (22:15)
[2022-04-20] VITALS (8 sets, daily range): BP systolic 106–132; BP diastolic 79–90
[2022-04-20] MEDS: Morphine 4mg INJECTION 4 MG/ML INJ IV PRN ×2 (00:37→05:21)
[2022-04-20] MEDS: HYDROCODONE/APAP 5MG-325MG TAB PO PRN ×2 (02:53→07:38)
[2022-04-20] MEDS ORDERED: SODIUM CHLORIDE 0.9% 100 ML ONE (04:40)
[2022-04-20] MEDS: LISINOPRIL 10 MG TAB PO SCH (07:43)
[2022-04-20] MEDS: FERROUS SULFATE 325 MG TAB PO SCH (07:43)
[2022-04-20 08:27] LABS: ANION GAP 16.4 mmol/L (8-16); CALCIUM 9.1 mg/dL (8.4-10.2); CREATININE, SERUM 1.92 mg/dL (0.57-1.11); POTASSIUM 4.4 mmol/L (3.5-5.1)
[2022-04-20] MEDS: ONDANSETRON HCL INJ 2MG/ML 2ML 2 MG/ML VIAL IV PRN ×3 (08:43→21:04)
[2022-04-20] MEDS: HYDROMORPHONE 1MG/1ML INJ IV PRN ×4 (08:43→20:11)
[2022-04-20] MEDS ORDERED: HEPARIN SOD (PORCINE) 1000 UNIT/ML SDV IV PRN (09:15)
[2022-04-20] MEDS ORDERED: SODIUM CHLORIDE 0.9% 1000ML 2,000 ML IV PRN (09:15)
[2022-04-20] MEDS: HYDROCODONE/APAP 7.5MG-325MG 1 EA TAB PO PRN ×3 (11:38→22:03)
[2022-04-20] MEDS ORDERED: ACETAMINOPHEN 325 MG TAB PO PRN (17:00)
[2022-04-20] MEDS: POLYETHYLENE GLYCOL 3350 17 GM PACK PO PRN (17:43)
[2022-04-21] VITALS (9 sets, daily range): BP systolic 91–119; BP diastolic 57–79
[2022-04-21] MEDS: HYDROMORPHONE 1MG/1ML INJ IV PRN ×7 (00:13→22:36)
[2022-04-21] MEDS: HYDROCODONE/APAP 7.5MG-325MG 1 EA TAB PO PRN ×5 (02:56→20:35)
[2022-04-21] MEDS: ONDANSETRON HCL INJ 2MG/ML 2ML 2 MG/ML VIAL IV PRN ×5 (05:06→22:35)
[2022-04-21 06:03] LABS: ANION GAP 14.4 mmol/L (8-16); CALCIUM 8.9 mg/dL (8.4-10.2); CREATININE, SERUM 1.73 mg/dL (0.57-1.11); POTASSIUM 4.4 mmol/L (3.5-5.1)
[2022-04-21] MEDS: LISINOPRIL 10 MG TAB PO SCH ×3 (09:00→11:06)
[2022-04-21] MEDS: FERROUS SULFATE 325 MG TAB PO SCH (11:04)
[2022-04-21] MEDS: FLUCONAZOLE 100 MG TAB PO SCH (11:04)
[2022-04-21] MEDS: POLYETHYLENE GLYCOL 3350 17 GM PACK PO PRN (16:29)
[2022-04-22] VITALS (8 sets, daily range): BP systolic 103–118; BP diastolic 69–92
[2022-04-22] MEDS: HYDROCODONE/APAP 7.5MG-325MG 1 EA TAB PO PRN ×5 (00:41→19:57)
[2022-04-22] MEDS: HYDROMORPHONE 1MG/1ML INJ IV PRN ×6 (02:37→21:45)
[2022-04-22] MEDS: ONDANSETRON HCL INJ 2MG/ML 2ML 2 MG/ML VIAL IV PRN ×5 (04:34→21:45)
[2022-04-22 05:32] LABS: ANION GAP 14.4 mmol/L (8-16); CALCIUM 8.9 mg/dL (8.4-10.2); CREATININE, SERUM 1.73 mg/dL (0.57-1.11); POTASSIUM 4.4 mmol/L (3.5-5.1)
[2022-04-22] MEDS: LISINOPRIL 10 MG TAB PO SCH (09:00)
[2022-04-22] MEDS: FLUCONAZOLE 100 MG TAB PO SCH (09:11)
[2022-04-22] MEDS: FERROUS SULFATE 325 MG TAB PO SCH (09:11)
[2022-04-22 11:32] LABS: CREATININE,URINE RANDOM 64.41 mg/dL (47-110)
[2022-04-22] MEDS: POLYETHYLENE GLYCOL 3350 17 GM PACK PO PRN (13:14)
[2022-04-23 00:48] VITALS: BP 128/84
[2022-04-23] MEDS: HYDROMORPHONE 1MG/1ML INJ IV PRN ×4 (01:02→11:24)
[2022-04-23] MEDS: HYDROCODONE/APAP 7.5MG-325MG 1 EA TAB PO PRN ×2 (02:38→06:53)
[2022-04-23 04:00] VITALS: BP 105/70
[2022-04-23] MEDS: ONDANSETRON HCL INJ 2MG/ML 2ML 2 MG/ML VIAL IV PRN (04:49)
[2022-04-23] MEDS: POLYETHYLENE GLYCOL 3350 17 GM PACK PO PRN (04:56)
[2022-04-23 05:34] LABS: ALBUMIN 3.2 g/dL (3.5-5.0); ALBUMIN/GLOBULIN RATIO 0.8 (0.8-2.0); ANION GAP 14.5 mmol/L (8-16); CALCIUM 8.6 mg/dL (8.4-10.2); CREATININE, SERUM 1.58 mg/dL (0.57-1.11); POTASSIUM 4.5 mmol/L (3.5-5.1)
[2022-04-23 08:04] VITALS: BP 107/75
[2022-04-23] MEDS: FLUCONAZOLE 100 MG TAB PO SCH (08:55)
[2022-04-23] MEDS: FERROUS SULFATE 325 MG TAB PO SCH (08:55)
[2022-04-23 08:58] VITALS: BP 107/75
[2022-04-23] MEDS ORDERED: LACTULOSE SYRUP 20 GM/30 ML UDC PO PRN (10:45)
== END 2022-04-23 12:21 | disposition home or self-care (01) | DRG 690 ==
LOC: ER 14:10 → ERHOLD 19:23 → MED/SURG 21:41
PROVIDERS: ADMIT Family Medicine; ATTEND Family Medicine
PROC: 5A1D70Z Performance of Urinary Filtration, Intermittent, Less than 6 Hours Per Day (ICD-10-PCS; principal; 2022-04-20)
DX: N13.6 Pyonephrosis (principal); I12.0 Hypertensive chronic kidney disease with stage 5 chronic kidney disease or end stage renal disease; N12 Tubulo-interstitial nephritis, not specified as acute or chronic; G89.3 Neoplasm related pain (acute) (chronic); N18.6 End stage renal disease; C53.9 Malignant neoplasm of cervix uteri, unspecified; Z99.2 Dependence on renal dialysis; D64.9 Anemia, unspecified; R31.29 Other microscopic hematuria; Z96.0 Presence of urogenital implants; Z92.3 Personal history of irradiation
CPT/HCPCS: 36415; 80048; 80053; 81001; 82575; 85025; 86706; 87350; 99284; J0692; J1170; J1644; J2270; J2405; J7030; J7050

== ENCOUNTER 2022-05-02 11:32 | Emergency (ER) | payer OTHER ==
[~2022-05-02] VITALS: Ht 175.3 cm; Wt 57.6 kg
[2022-05-02] MEDS ORDERED: SODIUM CHLORIDE 0.9% 1000ML 1,000 ML IV STA (12:01)
[2022-05-02 12:12] LABS: BASOPHILS % 0.4 % (0.0-1.0); EOSINOPHILS % 0.2 % (0.0-6.0); HEMATOCRIT 24.5 % (34.2-44.1); HEMOGLOBIN 7.6 g/dL (12.0-16.0); MEAN CORPUSCULAR HEMOGLOBIN 30.9 pg (28-32); MEAN CORPUSCULAR VOLUME 99.6 fL (81-99); MONOCYTES # (AUTO) 0.3 (0.2-0.8); MONOCYTES % 6.2 % (4.4-11.3); NEUTROPHILS % 74.8 % (38.7-80.0); PLATELET COUNT 260 x10e3/uL (140-360); RED BLOOD COUNT 2.46 x10e6/uL (3.6-5.1); RED CELL DISTRIBUTION WIDTH 14.5 % (11.7-14.4)
[2022-05-02] MEDS ORDERED: ONDANSETRON HCL INJ 2MG/ML 2ML 2 MG/ML VIAL IV PRN (12:15)
[2022-05-02] MEDS ORDERED: SODIUM CHLORIDE 0.9% 1000ML 1,000 ML IV SCH (12:30)
[2022-05-02] MEDS ORDERED: FENTANYL CITRATE/PF 100MCG/2 ML INJ IV PRN (12:30)
[2022-05-02 12:33] LABS: ALANINE AMINOTRANSFERASE 28 IU/L (0-55); ALBUMIN/GLOBULIN RATIO 1.1 (0.8-2.0); ALKALINE PHOSPHATASE 113 IU/L (40-150); ANION GAP 15.2 mmol/L (8-16); BLOOD UREA NITROGEN 17 mg/dL (7-26); BUN/CREATININE RATIO 12 (6-25); CALCIUM 9.2 mg/dL (8.4-10.2); CARBON DIOXIDE 20 mmol/L (22-29); CHLORIDE 108 mmol/L (98-107); CREATININE, SERUM 1.44 mg/dL (0.57-1.11); GLUCOSE 114 mg/dL (74-118); POTASSIUM 4.2 mmol/L (3.5-5.1); SODIUM 139 mmol/L (136-145)
[2022-05-02 12:35] LABS: LIPASE < 4 U/L (8-78)
[2022-05-02] MEDS ORDERED: HYDROMORPHONE 1MG/1ML INJ IV PRN (13:45)
[2022-05-02] MEDS ORDERED: IOPAMIDOL 370 MG/ML 100 ML INFUS..BTL INJ ONE (14:03)
[2022-05-02] MEDS ORDERED: HYDROMORPHONE 2MG/ML 2 MG/ML ML ONE (14:03)
[2022-05-02 14:27] LABS: CLARITY,URINE CLEAR (CLEAR); COLOR,URINE YELLOW (YELLOW); KETONES,URINE NEGATIVE (NEGATIVE); LEUKOCYTE ESTERASE ,URINE TRACE (NEGATIVE); NITRITE,URINE NEGATIVE (NEGATIVE); PROTEIN,URINE DIPSTICK 2+ (NEGATIVE); URINE UROBILINOGEN 0.2 mg/dL (0.2 - 1)
[2022-05-02 14:40] LABS: BACTERIA,URINE MODERATE /HPF
[2022-05-02 14:42] LABS: EPITHELIAL CELLS,URINE FEW /LPF; RBC,URINE 0-5 /HPF (0-5); WBC,URINE (MAN) 21-50 /HPF (0-5)
[2022-05-02] MEDS ORDERED: CEFDINIR300 MG PO (15:15)
[2022-05-02 16:06] LABS: CLARITY,URINE CLEAR (CLEAR); COLOR,URINE YELLOW (YELLOW); LEUKOCYTE ESTERASE ,URINE MODERATE (NEGATIVE); NITRITE,URINE NEGATIVE (NEGATIVE)
[2022-05-02 16:07] LABS: KETONES,URINE NEGATIVE (NEGATIVE); PROTEIN,URINE DIPSTICK 2+ (NEGATIVE); URINE UROBILINOGEN 0.2 mg/dL (0.2 - 1)
[2022-05-02 16:08] LABS: CLARITY,URINE CLEAR (CLEAR); COLOR,URINE YELLOW (YELLOW); KETONES,URINE NEGATIVE (NEGATIVE); LEUKOCYTE ESTERASE ,URINE TRACE (NEGATIVE); NITRITE,URINE NEGATIVE (NEGATIVE); PROTEIN,URINE DIPSTICK TRACE (NEGATIVE); URINE UROBILINOGEN 0.2 mg/dL (0.2 - 1)
[2022-05-02 16:09] LABS: CLARITY,URINE CLEAR (CLEAR); COLOR,URINE YELLOW (YELLOW); LEUKOCYTE ESTERASE ,URINE SMALL (NEGATIVE); NITRITE,URINE NEGATIVE (NEGATIVE); PROTEIN,URINE DIPSTICK >=300 (NEGATIVE)
[2022-05-02 16:10] LABS: KETONES,URINE NEGATIVE (NEGATIVE); URINE UROBILINOGEN 0.2 mg/dL (0.2 - 1)
[2022-05-02 16:15] LABS: BACTERIA,URINE RARE /HPF; RBC,URINE 0-5 /HPF (0-5); WBC,URINE (MAN) 0-5 /HPF (0-5)
[2022-05-02 16:19] LABS: BACTERIA,URINE MODERATE /HPF
== END 2022-05-02 15:56 | disposition home or self-care (01) ==
LOC: ER 11:43
DX: N39.0 Urinary tract infection, site not specified (principal); C53.9 Malignant neoplasm of cervix uteri, unspecified; Z93.6 Other artificial openings of urinary tract status; I12.0 Hypertensive chronic kidney disease with stage 5 chronic kidney disease or end stage renal disease; N18.6 End stage renal disease; Z99.2 Dependence on renal dialysis; Z79.899 Other long term (current) drug therapy
CPT/HCPCS: 36415; 74177; 80053; 81001; 83690; 84702; 85025; 87086; 99284; J1170; J2405; J3010; J7030; Q9967

== ENCOUNTER 2022-06-24 20:10 | Inpatient (IN) | payer OTHER ==
[~2022-06-24] VITALS: Ht 175.3 cm; Wt 52.2 kg
[~2022-06-24 20:10] MED LIST changes: +CEFDINIR300 MG PO; +HIPREX1 GM PO; +HYDROCODON-ACE1 EA11 PO; +HYDROCODON-ACE1 EAC9 PO
[2022-06-24] MEDS ORDERED: HYDROMORPHONE 1MG/1ML INJ IV STA ×2 (21:35→22:39)
[2022-06-24] MEDS ORDERED: ONDANSETRON HCL INJ 2MG/ML 2ML 2 MG/ML VIAL IV STA (21:35)
[2022-06-24 21:51] LABS: CLARITY,URINE CLOUDY (CLEAR); COLOR,URINE YELLOW (YELLOW)
[2022-06-24 21:52] LABS: KETONES,URINE NEGATIVE (NEGATIVE); LEUKOCYTE ESTERASE ,URINE LARGE (NEGATIVE); NITRITE,URINE POSITIVE (NEGATIVE); PROTEIN,URINE DIPSTICK >=300 (NEGATIVE); URINE UROBILINOGEN 1 mg/dL (0.2 - 1)
[2022-06-24] MEDS ORDERED: SODIUM CHLORIDE 0.9% 1000ML 1,000 ML ONE (21:55)
[2022-06-24] MEDS ORDERED: Morphine 4mg INJECTION 4 MG/ML INJ ONE (21:55)
[2022-06-24 22:00] LABS: AMORPHOUS SEDIMENT,URINE MANY (FEW); BACTERIA,URINE MODERATE /HPF; EPITHELIAL CELLS,URINE MODERATE /LPF; WBC,URINE (MAN) 21-50 /HPF (0-5)
[2022-06-24 22:01] LABS: BASOPHILS % 0.2 % (0.0-1.0); EOSINOPHILS # (AUTO) 0.1 (0.0-0.4); EOSINOPHILS % 1.3 % (0.0-6.0); HEMATOCRIT 26.1 % (34.2-44.1); LYMPHOCYTES # (AUTO) 1.3 (1.0-3.2); LYMPHOCYTES % 23.7 % (18.0-39.1); MEAN CORPUSCULAR HEMOGLOBIN 31.4 pg (28-32); MEAN CORPUSCULAR HGB CONC 30.7 g/dL (31-35); MEAN CORPUSCULAR VOLUME 102.4 fL (81-99); MONOCYTES # (AUTO) 0.5 (0.2-0.8); MONOCYTES % 10.2 % (4.4-11.3); NEUTROPHILS # (AUTO) 3.4 (2.1-6.9); NEUTROPHILS % 64.2 % (38.7-80.0); PLATELET COUNT 269 x10e3/uL (140-360); RED BLOOD COUNT 2.55 x10e6/uL (3.6-5.1); RED CELL DISTRIBUTION WIDTH 17.2 % (11.7-14.4)
[2022-06-24 22:22] LABS: ALBUMIN 3.2 g/dL (3.5-5.0); ALBUMIN/GLOBULIN RATIO 0.8 (0.8-2.0); ANION GAP 16.9 mmol/L (8-16); CALCIUM 8.9 mg/dL (8.4-10.2); CREATININE, SERUM 1.2 mg/dL (0.57-1.11); POTASSIUM 3.9 mmol/L (3.5-5.1)
[2022-06-24] MEDS: SODIUM CHLORIDE 0.9% 1000ML 1,000 ML IV SCH (23:15)
[2022-06-25] VITALS (7 sets, daily range): BP systolic 102–127; BP diastolic 70–89
[2022-06-25] MEDS ORDERED: HYDROMORPHONE 1MG/1ML INJ IV STA (01:00)
[2022-06-25] MEDS: HYDROMORPHONE 1MG/1ML INJ IV PRN ×5 (01:48→20:24)
[2022-06-25] MEDS ORDERED: HYDROMORPHONE HC2 MG PO (02:00)
[2022-06-25] MEDS: ONDANSETRON HCL INJ 2MG/ML 2ML 2 MG/ML VIAL IV PRN ×3 (04:51→21:01)
[2022-06-25] MEDS ORDERED: NALOXONE HCL INJ 0.4 MG/ML AMP IV PRN (06:45)
[2022-06-25] MEDS: HYDROMORPHONE HCL 2 MG TAB PO SCH ×3 (07:19→20:29)
[2022-06-25 08:09] LABS: BASOPHILS % 0.5 % (0.0-1.0); EOSINOPHILS # (AUTO) 0.1 (0.0-0.4); EOSINOPHILS % 1.5 % (0.0-6.0); HEMATOCRIT 22.5 % (34.2-44.1); HEMOGLOBIN 7.4 g/dL (12.0-16.0); LYMPHOCYTES # (AUTO) 0.7 (1.0-3.2); LYMPHOCYTES % 17.3 % (18.0-39.1); MEAN CORPUSCULAR HEMOGLOBIN 32.2 pg (28-32); MEAN CORPUSCULAR HGB CONC 32.9 g/dL (31-35); MEAN CORPUSCULAR VOLUME 97.8 fL (81-99); MONOCYTES # (AUTO) 0.4 (0.2-0.8); MONOCYTES % 9.4 % (4.4-11.3); NEUTROPHILS # (AUTO) 2.8 (2.1-6.9); NEUTROPHILS % 70.8 % (38.7-80.0); PLATELET COUNT 210 x10e3/uL (140-360)
[2022-06-25 08:32] LABS: ANION GAP 10.6 mmol/L (8-16); CALCIUM 8.1 mg/dL (8.4-10.2); CREATININE, SERUM 1.14 mg/dL (0.57-1.11); POTASSIUM 3.6 mmol/L (3.5-5.1)
[2022-06-25] MEDS: ASCORBIC ACID 500 MG TAB PO SCH ×2 (08:55→16:41)
[2022-06-25] MEDS ORDERED: FERROUS SULFATE 325 MG TAB PO SCH (09:00)
[2022-06-25] MEDS: KETOROLAC TROMETHAMINE 30 MG/ML VIAL IM PRN ×2 (10:28→16:41)
[2022-06-25] MEDS: SODIUM CHLORIDE 0.9% 1000ML 1,000 ML IV SCH ×2 (11:03→23:04)
[2022-06-25] MEDS ORDERED: TEMAZEPAM 15 MG CAP PO PRN (19:00)
[2022-06-25] MEDS ORDERED: ACETAMINOPHEN 325 MG TAB PO PRN (19:00)
[2022-06-25] MEDS ORDERED: HYDRALAZINE HCL 20 MG/ML VIAL IV PRN (19:00)
[2022-06-25] MEDS ORDERED: POLYETHYLENE GLYCOL 3350 17 GM PACK PO PRN (19:00)
[2022-06-25 19:18] LABS: % IRON SATURATION 24 % (15-50); IRON 36 ug/dL (50-170); TOTAL IRON BINDING CAPACITY 148 ug/dL (261-478); TRANSFERRIN 106 mg/dL (180-382)
[2022-06-25] MEDS ORDERED: SODIUM FERRIC GLUCONATE COMPLX 125 MG in SODIUM CHLORIDE 0.9% 100 ML IV SCH (19:30)
[2022-06-25] MEDS: DOCUSATE SODIUM 100 MG CAP PO SCH (20:26)
[2022-06-26] VITALS (9 sets, daily range): BP systolic 100–112; BP diastolic 65–82
[2022-06-26] MEDS: HYDROMORPHONE HCL 2 MG TAB PO SCH ×5 (02:00→20:18)
[2022-06-26] MEDS: HYDROMORPHONE 1MG/1ML INJ IV PRN ×7 (02:10→21:56)
[2022-06-26] MEDS: SODIUM CHLORIDE 0.9% 1000ML 1,000 ML IV SCH ×4 (04:04→23:15)
[2022-06-26] MEDS: KETOROLAC TROMETHAMINE 30 MG/ML VIAL IM PRN (04:55)
[2022-06-26 05:12] LABS: BASOPHILS % 0.3 % (0.0-1.0); EOSINOPHILS # (AUTO) 0.1 (0.0-0.4); EOSINOPHILS % 1.9 % (0.0-6.0); HEMATOCRIT 23.6 % (34.2-44.1); HEMOGLOBIN 7.1 g/dL (12.0-16.0); LYMPHOCYTES # (AUTO) 0.9 (1.0-3.2); LYMPHOCYTES % 24.7 % (18.0-39.1); MEAN CORPUSCULAR HEMOGLOBIN 31.3 pg (28-32); MEAN CORPUSCULAR HGB CONC 30.1 g/dL (31-35); MONOCYTES # (AUTO) 0.4 (0.2-0.8); NEUTROPHILS # (AUTO) 2.3 (2.1-6.9); NEUTROPHILS % 61.6 % (38.7-80.0); PLATELET COUNT 230 x10e3/uL (140-360); RED BLOOD COUNT 2.27 x10e6/uL (3.6-5.1); RED CELL DISTRIBUTION WIDTH 17.3 % (11.7-14.4)
[2022-06-26 05:30] LABS: ANION GAP 12.9 mmol/L (8-16); CALCIUM 8.5 mg/dL (8.4-10.2); CHOL/HDL RATIO 3.8 (3.0-3.6); CREATININE, SERUM 1.15 mg/dL (0.57-1.11); MAGNESIUM 1.8 MG/DL (1.3-2.1); PHOSPHORUS 3.2 MG/DL (2.3-4.7); POTASSIUM 3.9 mmol/L (3.5-5.1)
[2022-06-26 05:50] LABS: THYROID STIMULATING HORMONE 0.471 uIU/mL (0.350-4.940)
[2022-06-26] MEDS ORDERED: SODIUM CHLORIDE 0.9% 250ML 250 ML IV ONE (08:15)
[2022-06-26] MEDS: FAMOTIDINE 20 MG TAB PO SCH ×2 (08:30→17:30)
[2022-06-26] MEDS: ASCORBIC ACID 500 MG TAB PO SCH ×2 (09:47→17:56)
[2022-06-26] MEDS: DOCUSATE SODIUM 100 MG CAP PO SCH ×3 (09:47→20:18)
[2022-06-26] MEDS: ONDANSETRON HCL INJ 2MG/ML 2ML 2 MG/ML VIAL IV PRN ×2 (11:06→15:28)
[2022-06-26] MEDS ORDERED: KETOROLAC TROMETHAMINE 10 MG TAB PO PRN (12:15)
[2022-06-26] MEDS ORDERED: KETOROLAC TROMETHAMINE 30 MG/ML VIAL IM PRN (17:45)
[2022-06-26] MEDS ORDERED: SODIUM FERRIC GLUCONATE COMPLX 125 MG in SODIUM CHLORIDE 0.9% 100 ML IV SCH (20:00)
[2022-06-27] VITALS: BP 139/92
[2022-06-27] MEDS: HYDROMORPHONE 1MG/1ML INJ IV PRN ×5 (01:29→13:32)
[2022-06-27] MEDS: HYDROMORPHONE HCL 2 MG TAB PO SCH ×3 (02:20→14:37)
[2022-06-27 04:58] LABS: BASOPHILS % 0.2 % (0.0-1.0); EOSINOPHILS # (AUTO) 0.1 (0.0-0.4); EOSINOPHILS % 1.4 % (0.0-6.0); HEMATOCRIT 26.9 % (34.2-44.1); HEMOGLOBIN 8.3 g/dL (12.0-16.0); LYMPHOCYTES # (AUTO) 0.9 (1.0-3.2); LYMPHOCYTES % 20.9 % (18.0-39.1); MEAN CORPUSCULAR HEMOGLOBIN 31.4 pg (28-32); MEAN CORPUSCULAR HGB CONC 30.9 g/dL (31-35); MEAN CORPUSCULAR VOLUME 101.9 fL (81-99); MONOCYTES # (AUTO) 0.5 (0.2-0.8); MONOCYTES % 11.3 % (4.4-11.3); NEUTROPHILS # (AUTO) 2.7 (2.1-6.9); NEUTROPHILS % 65.7 % (38.7-80.0); PLATELET COUNT 214 x10e3/uL (140-360); RED BLOOD COUNT 2.64 x10e6/uL (3.6-5.1); RED CELL DISTRIBUTION WIDTH 16.1 % (11.7-14.4)
[2022-06-27 05:17] LABS: ANION GAP 12.8 mmol/L (8-16); CREATININE, SERUM 1.2 mg/dL (0.57-1.11); POTASSIUM 3.8 mmol/L (3.5-5.1)
[2022-06-27] MEDS: SODIUM CHLORIDE 0.9% 1000ML 1,000 ML IV SCH (07:42)
[2022-06-27 08:20] VITALS: BP 117/82
[2022-06-27 08:30] VITALS: BP 117/82
[2022-06-27] MEDS: FAMOTIDINE 20 MG TAB PO SCH (08:36)
[2022-06-27] MEDS: ASCORBIC ACID 500 MG TAB PO SCH (08:37)
[2022-06-27] MEDS: DOCUSATE SODIUM 100 MG CAP PO SCH ×2 (08:37→14:37)
[2022-06-27 13:26] VITALS: BP 121/85
[2022-06-27] MEDS: ONDANSETRON HCL INJ 2MG/ML 2ML 2 MG/ML VIAL IV PRN (13:32)
[2022-06-27] MEDS ORDERED: AUGMENTIN 500-1 EACH PO (14:32)
[2022-06-27] MEDS ORDERED: HEPARIN 500 UNITS/5ML MDV INJ ONE (14:45)
[2022-06-28] MEDS ORDERED: FERROUS SULFATE 325 MG TAB PO SCH (09:00)
== END 2022-06-27 15:14 | disposition home or self-care (01) | DRG 690 ==
LOC: ER 21:02 → ERHOLD 23:15 → MED/SURG 06-25 01:02 → OBSVTOIN 06-26 10:00
PROVIDERS: ADMIT Internal Medicine; ATTEND Internal Medicine
PROC: 30243N1 Transfusion of Nonautologous Red Blood Cells into Central Vein, Percutaneous Approach (ICD-10-PCS; principal; 2022-06-26)
DX: N30.90 Cystitis, unspecified without hematuria (principal); C53.9 Malignant neoplasm of cervix uteri, unspecified; Z46.6 Encounter for fitting and adjustment of urinary device; D63.8 Anemia in other chronic diseases classified elsewhere; I12.9 Hypertensive chronic kidney disease with stage 1 through stage 4 chronic kidney disease, or unspecified chronic kidney disease; N18.9 Chronic kidney disease, unspecified; Z96.0 Presence of urogenital implants; B96.5 Pseudomonas (aeruginosa) (mallei) (pseudomallei) as the cause of diseases classified elsewhere; N13.5 Crossing vessel and stricture of ureter without hydronephrosis; G89.29 Other chronic pain; Z20.822 Contact with and (suspected) exposure to COVID-19
CPT/HCPCS: 36415; 74018; 80048; 80053; 80061; 81001; 81025; 83036; 83540; 83690; 83735; 84100; 84443; 84466; 85025; 86850; 86900; 86920; 87086; 94799; 99252; 99284; G0378; J0692; J1170; J1885; J2270; J2405; J2916; J7030; J7050; P9016

== ENCOUNTER 2022-07-01 10:59 | Emergency (ER) | payer OTHER ==
[~2022-07-01] VITALS: Ht 175.3 cm; Wt 52.2 kg
[~2022-07-01 10:59] MED LIST changes: +AUGMENTIN 500-1 EACH PO; +HYDROMORPHONE HC2 MG PO
[2022-07-01] MEDS ORDERED: FENTANYL CITRATE/PF 100MCG/2 ML INJ IV ONE (11:45)
[2022-07-01] MEDS ORDERED: SODIUM CHLORIDE 0.9% 1000ML 1,000 ML IV ONE (11:45)
[2022-07-01] MEDS ORDERED: ONDANSETRON HCL INJ 2MG/ML 2ML 2 MG/ML VIAL IV PRN (11:45)
[2022-07-01 13:19] LABS: BASOPHILS % 0.3 % (0.0-1.0); EOSINOPHILS # (AUTO) 0.2 (0.0-0.4); EOSINOPHILS % 2.8 % (0.0-6.0); HEMATOCRIT 28.5 % (34.2-44.1); HEMOGLOBIN 8.7 g/dL (12.0-16.0); LYMPHOCYTES % 15.4 % (18.0-39.1); MEAN CORPUSCULAR HEMOGLOBIN 31.2 pg (28-32); MEAN CORPUSCULAR HGB CONC 30.5 g/dL (31-35); MEAN CORPUSCULAR VOLUME 102.2 fL (81-99); MONOCYTES # (AUTO) 0.4 (0.2-0.8); MONOCYTES % 7.1 % (4.4-11.3); NEUTROPHILS # (AUTO) 4.6 (2.1-6.9); NEUTROPHILS % 74.1 % (38.7-80.0); PLATELET COUNT 224 x10e3/uL (140-360); RED BLOOD COUNT 2.79 x10e6/uL (3.6-5.1); RED CELL DISTRIBUTION WIDTH 16.4 % (11.7-14.4)
[2022-07-01 13:21] LABS: CLARITY,URINE SL CLOUDY (CLEAR); COLOR,URINE STRAW (YELLOW); KETONES,URINE NEGATIVE (NEGATIVE); LEUKOCYTE ESTERASE ,URINE SMALL (NEGATIVE); NITRITE,URINE NEGATIVE (NEGATIVE); PROTEIN,URINE DIPSTICK >=300 (NEGATIVE); URINE UROBILINOGEN 0.2 mg/dL (0.2 - 1)
[2022-07-01 13:32] LABS: RBC,URINE 21-50 /HPF (0-5)
[2022-07-01 13:33] LABS: YEAST,URINE FEW
[2022-07-01 13:34] LABS: ALANINE AMINOTRANSFERASE 8 IU/L (0-55); ALBUMIN 3.2 g/dL (3.5-5.0); ALBUMIN/GLOBULIN RATIO 0.9 (0.8-2.0); ALKALINE PHOSPHATASE 67 IU/L (40-150); ANION GAP 13.1 mmol/L (8-16); BLOOD UREA NITROGEN 13 mg/dL (7-26); BUN/CREATININE RATIO 14 (6-25); CALCIUM 8.6 mg/dL (8.4-10.2); CARBON DIOXIDE 25 mmol/L (22-29); CHLORIDE 107 mmol/L (98-107); CREATININE, SERUM 0.92 mg/dL (0.57-1.11); GLUCOSE 88 mg/dL (74-118); POTASSIUM 4.1 mmol/L (3.5-5.1); SODIUM 141 mmol/L (136-145)
[2022-07-01 13:34] LABS: BACTERIA,URINE MODERATE /HPF; EPITHELIAL CELLS,URINE FEW /LPF
[2022-07-01] MEDS ORDERED: HYDROMORPHONE 1MG/1ML INJ IV STA (13:52)
[2022-07-01 16:32] VITALS: BP 128/91
[2022-07-01] MEDS ORDERED: IOPAMIDOL 370 MG/ML 100 ML INFUS..BTL INJ ONE (16:34)
[2022-07-01] MEDS ORDERED: HYDROMORPHONE HCL 2 MG TAB PO ONE (17:00)
== END 2022-07-01 17:08 | disposition home or self-care (01) ==
LOC: ER 11:30
DX: M54.50 Low back pain, unspecified (principal); C53.9 Malignant neoplasm of cervix uteri, unspecified; R31.9 Hematuria, unspecified; R10.9 Unspecified abdominal pain; G89.29 Other chronic pain; D64.9 Anemia, unspecified; F41.9 Anxiety disorder, unspecified; Z20.822 Contact with and (suspected) exposure to COVID-19
CPT/HCPCS: 0223U; 36415; 71045; 74177; 80053; 81001; 84702; 85025; 87086; 99284; J1170; J2405; J3010; J7030; Q9967

== ENCOUNTER 2022-07-15 01:06 | Emergency (ER) | payer OTHER ==
[~2022-07-15] VITALS: Ht 175.3 cm; Wt 52.2 kg
[2022-07-15 02:01] LABS: BACTERIA,URINE FEW /HPF; CLARITY,URINE CLOUDY (CLEAR); COLOR,URINE RED (YELLOW); EPITHELIAL CELLS,URINE RARE /LPF; KETONES,URINE NEGATIVE (NEGATIVE); LEUKOCYTE ESTERASE ,URINE TRACE (NEGATIVE); NITRITE,URINE NEGATIVE (NEGATIVE); PROTEIN,URINE DIPSTICK >=300 (NEGATIVE); RBC,URINE >50 /HPF (0-5); URINE UROBILINOGEN 0.2 mg/dL (0.2 - 1)
[2022-07-15 02:06] LABS: CLARITY,URINE CLOUDY (CLEAR); COLOR,URINE RED (YELLOW)
[2022-07-15 02:07] LABS: BACTERIA,URINE FEW /HPF; EPITHELIAL CELLS,URINE RARE /LPF; KETONES,URINE NEGATIVE (NEGATIVE); LEUKOCYTE ESTERASE ,URINE 1+ (NEGATIVE); NITRITE,URINE NEGATIVE (NEGATIVE); PROTEIN,URINE DIPSTICK >=300 (NEGATIVE); RBC,URINE >50 /HPF (0-5); URINE UROBILINOGEN 0.2 mg/dL (0.2 - 1)
[2022-07-15] MEDS ORDERED: CEFDINIR300 MG PO (02:48)
[2022-07-15] MEDS ORDERED: ONDANSETRON ODT4 MG PO (02:48)
[2022-07-15 02:54] LABS: BACTERIA,URINE FEW /HPF; CLARITY,URINE CLOUDY (CLEAR); KETONES,URINE NEGATIVE (NEGATIVE); LEUKOCYTE ESTERASE ,URINE NEGATIVE (NEGATIVE); NITRITE,URINE NEGATIVE (NEGATIVE); PROTEIN,URINE DIPSTICK >=300 (NEGATIVE); RBC,URINE >50 /HPF (0-5); URINE UROBILINOGEN 0.2 mg/dL (0.2 - 1)
[2022-07-15 02:55] LABS: COLOR,URINE RED (YELLOW); EPITHELIAL CELLS,URINE RARE /LPF
[2022-07-15 03:04] VITALS: BP 112/87
== END 2022-07-15 03:02 | disposition home or self-care (01) ==
LOC: ER 01:24
DX: R50.9 Fever, unspecified (principal); N30.91 Cystitis, unspecified with hematuria; Z85.41 Personal history of malignant neoplasm of cervix uteri; D64.9 Anemia, unspecified; F41.9 Anxiety disorder, unspecified; Z93.6 Other artificial openings of urinary tract status
CPT/HCPCS: 81001; 87086; 87186; 99283

== ENCOUNTER 2022-08-01 20:27 | Emergency (ER) | payer OTHER ==
[~2022-08-01] VITALS: Ht 175.3 cm; Wt 52.2 kg
[~2022-08-01 20:27] MED LIST changes: +ONDANSETRON ODT4 MG PO
[2022-08-01] MEDS ORDERED: ONDANSETRON HCL INJ 2MG/ML 2ML 2 MG/ML VIAL IV STA (22:07)
[2022-08-01] MEDS ORDERED: SODIUM CHLORIDE 0.9% 1000ML 1,000 ML IV SCH (22:15)
[2022-08-01] MEDS ORDERED: Morphine 4mg INJECTION 4 MG/ML INJ IV ONE (22:15)
[2022-08-01 22:29] LABS: BASOPHILS % 0.4 % (0.0-1.0); HEMATOCRIT 26.3 % (34.2-44.1); HEMOGLOBIN 8.1 g/dL (12.0-16.0); LYMPHOCYTES # (AUTO) 0.6 (1.0-3.2); LYMPHOCYTES % 8.2 % (18.0-39.1); MEAN CORPUSCULAR HEMOGLOBIN 33.1 pg (28-32); MEAN CORPUSCULAR HGB CONC 30.8 g/dL (31-35); MEAN CORPUSCULAR VOLUME 107.3 fL (81-99); MONOCYTES % 0.6 % (4.4-11.3); NEUTROPHILS % 89.9 % (38.7-80.0); PLATELET COUNT 425 x10e3/uL (140-360); RED BLOOD COUNT 2.45 x10e6/uL (3.6-5.1); RED CELL DISTRIBUTION WIDTH 17.9 % (11.7-14.4)
[2022-08-01 22:39] LABS: INR 1.08; PROTHROMBIN TIME 14.2 seconds (11.9-14.5)
[2022-08-01 22:40] LABS: PARTIAL THROMBOPLASTIN TIME 46.8 seconds (23.8-35.5)
[2022-08-01 22:48] LABS: ALBUMIN 3.2 g/dL (3.5-5.0); ALBUMIN/GLOBULIN RATIO 0.7 (0.8-2.0); ANION GAP 17.4 mmol/L (8-16); CREATININE, SERUM 1.28 mg/dL (0.57-1.11)
[2022-08-01 22:51] LABS: POTASSIUM 5.4 mmol/L (3.5-5.1)
[2022-08-01] MEDS ORDERED: KETOROLAC TROMETHAMINE 30 MG/ML VIAL IV STA (23:07)
[2022-08-01] MEDS: SODIUM CHLORIDE FLUSH 10 ML SYR IV PRN (23:16)
[2022-08-01] MEDS ORDERED: KETOROLAC TROMETHAMINE 30 MG/ML VIAL ONE (23:23)
[2022-08-01 23:32] LABS: AMPHETAMINES SCREEN,URINE NEGATIVE (NEGATIVE); BENZODIAZEPINES SCREEN,URINE NEGATIVE (NEGATIVE); CLARITY,URINE SL CLOUDY (CLEAR); COLOR,URINE YELLOW (YELLOW); KETONES,URINE NEGATIVE (NEGATIVE); LEUKOCYTE ESTERASE ,URINE SMALL (NEGATIVE); NITRITE,URINE NEGATIVE (NEGATIVE); PHENCYCLIDINE SCREEN,URINE NEGATIVE (NEGATIVE); PROTEIN,URINE DIPSTICK >=300 (NEGATIVE)
[2022-08-01 23:33] LABS: URINE UROBILINOGEN 0.2 mg/dL (0.2 - 1)
[2022-08-01 23:35] LABS: AMORPHOUS SEDIMENT,URINE FEW (FEW); BACTERIA,URINE FEW /HPF; EPITHELIAL CELLS,URINE RARE /LPF
[2022-08-02] MEDS ORDERED: SOD POLYSTYRENE SULFONATE SUSP 15 GM/60 ML BTL PO ONE (02:00)
[2022-08-02] MEDS ORDERED: FUROSEMIDE INJ 10 MG/ML 4 ML VIAL IV ONE (02:00)
[2022-08-02] MEDS: SODIUM CHLORIDE FLUSH 10 ML SYR IV PRN ×2 (02:06)
[2022-08-02 03:09] VITALS: BP 117/95
== END 2022-08-02 03:11 | disposition home or self-care (01) ==
LOC: ER 20:38
DX: R10.2 Pelvic and perineal pain (principal); C53.9 Malignant neoplasm of cervix uteri, unspecified; N30.91 Cystitis, unspecified with hematuria; E87.5 Hyperkalemia; R10.30 Lower abdominal pain, unspecified; F12.10 Cannabis abuse, uncomplicated
CPT/HCPCS: 36415; 80053; 80307; 81001; 84702; 85025; 85610; 85730; 99283; J1885; J1940; J2270; J2405; J7030